=== PATIENT | male | born 1950 | race Caucasian/White ===

== ENCOUNTER 2018-02-10 05:44 | Day surgery (SDC) | payer MEDICARE ==
[2018-02-06 15:50] VITALS: BMI 29.2
[2018-02-10] MEDS ORDERED: NITROGLYCERIN SL TABS 0.4 MG TAB SUBLINGUAL PRN (05:47)
[2018-02-10] MEDS ORDERED: SODIUM CHLORIDE 0.9% 1,000 ML in EMPTY BAG 1 BAG IV ONE (05:47)
[2018-02-10] MEDS ORDERED: ASPIRIN 325 MG TAB PO STA (05:47)
[2018-02-10] MEDS ORDERED: ALPRAZolam 0.5 MG TAB PO PRN (05:47)
[2018-02-10] MEDS ORDERED: ATORVASTATIN 80 MG TAB PO STA (05:47)
[2018-02-10] MEDS ORDERED: ALPRAZolam 0.25 MG TAB PO PRN (05:47)
[2018-02-10 06:30] VITALS: TEMP 98.5
[2018-02-10 06:41] LABS: Basophils # (A) 0.1 k/uL (0-0.2); Basophils % (A) 1 %; Eosinophils # (A) 0.2 k/uL (0-0.7); Eosinophils % (A) 4 %; HCT 36.8 % (39.0-53.0); Lymphocytes # (A) 1.1 k/uL (1.0-4.8); Lymphocytes % (A) 25 %; MCH 29.9 pg (25.0-35.0); MCHC 32.6 g/dL (31.0-37.0); MCV 91.6 fL (80.0-100.0); Mean Platelet Volume 6.8; Monocytes # (A) 0.4 k/uL (0-1.0); Monocytes % (A) 9 %; Neutrophils # (A) 2.6 k/uL (1.3-7.7); Neutrophils % (A) 58 %; Platelet Count 275 k/uL (150-450); RBC 4.01 m/uL (4.30-5.90); RDW 14.6 % (11.5-15.5); WBC 4.5 k/uL (3.8-10.6)
[2018-02-10 06:43] LABS: Glucose,Whole Blood 99 mg/dL (75-99)
[2018-02-10 06:46] LABS: INR 1.2 (<1.2); Prothrombin Time 11.9 sec (9.0-12.0)
[2018-02-10] MEDS ORDERED: MIDAZOLAM 2 MG/2 ML VIAL ONE ×2 (06:48→09:00)
[2018-02-10] MEDS ORDERED: fentaNYL (PF) 50 MCG/ML 2 ML AMP ONE (06:48)
[2018-02-10] MEDS: BENZOCAINE SPRAY 1 CAN MUCOUS MEM ONE ×3 (06:52→07:10)
[2018-02-10] MEDS ORDERED: SODIUM CHLORIDE 0.9% 1,000 ML IV ONE (07:02)
[2018-02-10 07:03] LABS: Calcium 9.7 mg/dL (8.4-10.2); Potassium 3.8 mmol/L (3.5-5.1)
[2018-02-10] MEDS ORDERED: MIDAZOLAM 2 MG/2 ML VIAL IVP ONE (07:05)
[2018-02-10] MEDS: fentaNYL (PF) 50 MCG/ML 2 ML AMP IVP ONE ×2 (07:05→07:25)
[2018-02-10] MEDS ORDERED: LIDOCAINE 2% INJ 20 MG/ML (20 ML MDV) ONE (07:17)
[2018-02-10] MEDS ORDERED: HEPARIN SODIUM 1,000 UN/ML (10ML VL) ONE (07:17)
[2018-02-10] MEDS ORDERED: VERAPAMIL 2.5 MG/ML 2 ML AMP ONE ×2 (07:17→08:34)
--- NOTE | 2018-02-10 08:05 | ECHOT ---
TRANSESOPHAGEAL ECHOCARDIOGRAM INDICATION: Evaluation of mitral valve. PROCEDURE: After explaining the procedure to the patient as well as the risks and the complications. Blood pressure, heart rate, O2 saturation were monitored. The throat was sprayed with Cetacaine. He received 50 mcg intravenous fentanyl and 1 mg intravenous Versed. After obtaining moderate conscious sedated state, the probe was introduced in the esophagus without difficulty. Images were obtained. Following that, the probe was removed. There was no immediate complication. FINDINGS: Left atrial size is dilated. Left atrial appendage is normal. Left ventricular size and systolic function normal. The aortic valve revealed mild fibrocalcific change of the aortic cusp with preserved opening. The mitral valve appears to be normal. The tricuspid valve is normal. A wire was noted in the right ventricle. The descending thoracic aorta appears to be normal. No pericardial effusion was noted. Doppler, pulse wave and color Doppler obtained and revealed severe mitral regurgitation with mild to moderate aortic and mild tricuspid regurgitation. There was no shunting by color Doppler study. The estimated right ventricular systolic pressure was 37 mmHg. CONCLUSION: 1. Dilated left atrium and normal appearance of left atrial appendage. 2. Severe mitral regurgitation. 3. Normal left ventricular size and systolic function with ejection fraction estimated at 55%. 4. Mild to moderate aortic regurgitation with mild sclerosis of the valve. 5. Mild tricuspid regurgitation. 6. A wire was noted in the right ventricle and right atrium. 7. No evidence of shunting across the interatrial septum. 8. Normal appearance of the descending thoracic aorta. MMODL / IJN: [id number] /
[2018-02-10] MEDS ORDERED: LIDOCAINE 2% INJ 20 MG/ML SQ ONE (08:09)
[2018-02-10] MEDS ORDERED: VERAPAMIL SYRINGE (5 MG/10 ML) INTRAARTER ONE (08:12)
[2018-02-10] MEDS ORDERED: HEPARIN SODIUM 1,000 UN/ML (10ML VL) IV ONE (08:13)
[2018-02-10] MEDS: VERAPAMIL SYRINGE (5 MG/10 ML) INTRAARTER ONE ×2 (08:39→09:02)
[2018-02-10] MEDS ORDERED: MIDAZOLAM 2 MG/2 ML VIAL IV ONE (09:02)
[2018-02-10] MEDS ORDERED: IOHEXOL 350 MG/ML 125ML BOTTLE INJ ONE (09:15)
[2018-02-10] MEDS ORDERED: RX INFO: IV CONTRAST WAS GIVEN 1 EACH MISC MISCELLANE PRN (09:24)
[2018-02-10] MEDS ORDERED: TRIAMCINOLONE ACET 0.5% CREAM 15 GM TUBE TOPICAL PRN (09:25)
[2018-02-10] MEDS ORDERED: SODIUM CHLORIDE 0.9% 1,000 ML IV SCH (09:30)
--- NOTE | 2018-02-10 10:26 | CC ---
CARDIAC CATHETERIZATION REPORT Mr. Gutierrez is a 67-year-old male with known history of mitral regurgitation, who has been complaining of progressive symptoms of dyspnea. He was evaluated by Dr. Rockwell and recommendation regarding cardiac catheterization. The procedures, risks and complications were discussed with the patient who is in full understanding and agreement. PROCEDURE: Patient was brought to the [facility] after receiving fentanyl and Benadryl and achieving moderate conscious sedated state. Using Xylocaine anesthesia and Seldinger technique, a 6-Cymro sheath was introduced in the right radial artery. Attempt to cannulate the coronaries were unsuccessful because severe tortuosity at that time. Using Xylocaine anesthesia and Seldinger technique, a 6-Cymro sheath was introduced in left radial artery and a selective right coronary angiography was attempted with 5-Cymro 4 bend right Maria Alejandra which was unsuccessful. Subsequently, was cannulated using a 5-Cymro multipurpose B2. Following that, the catheters were removed. Attempt to advance a 5- Cymro 4 bend Maria Alejandra were unsuccessful. That catheter was removed and subsequently a 6-Cymro Mark and subsequently a 6-Cymro were used to obtain images of the left coronary system. After obtaining images of the coronary system, catheter and sheaths were removed. Hemostasis was obtained with deployment of a TR band on both radial artery. There was no immediate complication. Patient is returned to his room in stable condition. The aortic valve was crossed using the Mark catheter and pressures were calculated. Of note, the patient received 4500 units of intravenous heparin as well as intra-arterial verapamil. FINDIN. LEFT MAIN: This is a large size vessel bifurcating into left circumflex, anterior descending artery. Left main coronary artery has no evidence of high-grade stenosis. 2. LEFT ANTERIOR DESCENDING ARTERY: This is a large-sized vessel, reaching toward the apex with a wraparound apex segment giving rise to 2 diagonal branches. The left anterior descending artery as well as branches have no evidence of significant obstructive coronary artery disease. 3. LEFT CIRCUMFLEX: This is a nondominant vessel giving rise to a large obtuse marginal branch. The left circumflex as well as branches have no evidence of obstructive lung disease. 4. RIGHT CORONARY ARTERY: This is a large dominant vessel bifurcating distally into PDA, postoperative single branches. The right coronary artery has mild intimal disease in mid segment of 10% to 20%. The rest of the vessel has no high-grade stenosis. 5. LEFT VENTRICULOGRAM: Left ventriculogram was not performed. HEMODYNAMICS: There was no gradient across the aortic valve. The ventricular diastolic pressure was 12 mmHg. CONCLUSION: 1. Minimal coronary artery disease. 2. Normal left ventricle end-diastolic pressure. RECOMMENDATION: Patient will be evaluated regarding the need to undergo mitral valve surgery. Those findings and recommendation were discussed with the patient and his family who are in full understanding and agreement. Duration of procedure is 70 minutes. MMHALEYL / IJN: [id number] /
--- NOTE | 2018-02-10 10:29 | LTR ---
DATE OF SERVICE: 02/10/2018 RE: Neymar Gutierrez Dear Dr. Bridges; I had the pleasure to perform cardiac catheterization on Mr. Gutierrez at [facility] on February 10, 2018 and a full copy of the procedure note will be forwarded to you. In brief, he was found to have mild intimal disease but his transthoracic echocardiogram revealed severe mitral regurgitation. In view of that, I would recommend proceeding with evaluation for possible mitral valve repair. I will keep you updated on his progress and thank you again for allowing me to participate in this patient's care. Please feel free to call if any questions. Sincerely yours, Amita DURAN / MARY LOU: [id number] /
[2018-02-10 11:05] VITALS: PULSE 49
[2018-02-10 12:01] VITALS: BP 129/60; RESP 16
[2018-02-10] MEDS ORDERED: HYDROCHLOROTHIAZIDE PO SCH (15:00)
[2018-02-10] MEDS ORDERED: DIGOXIN 125 MCG TAB PO SCH (15:00)
[2018-02-10] MEDS ORDERED: LOSARTAN PO SCH (15:00)
[2018-02-10] MEDS ORDERED: ATORVASTATIN 40 MG TAB PO SCH (15:00)
[2018-02-10] MEDS ORDERED: NON-FORMULARY DRUG (Ubidecarenone [Co Q-10] 200 MG) PO SCH (15:00)
[2018-02-10] MEDS ORDERED: NON-FORMULARY DRUG (Gabapentin [Neurontin] 600 MG) PO SCH (16:00)
[2018-02-10] MEDS ORDERED: WARFARIN 5 MG TAB PO SCH (21:00)
[2018-02-10] MEDS ORDERED: [UNRECOGNIZED DRUG - OTHER] PO SCH (21:00)
[2018-02-10] MEDS ORDERED: FLECAINIDE ACETATE 100 MG PO SCH (21:00)
[2018-02-10] MEDS ORDERED: CALCIUM CARBONATE PO SCH (21:00)
[2018-02-10] MEDS ORDERED: CARVEDILOL 3.125 MG TAB PO SCH (21:00)
[2018-02-10] MEDS ORDERED: VITAMIN D3 PO SCH (21:00)
== END 2018-02-10 14:30 | disposition home or self-care (01) ==
LOC: CATHCVL 05:44
PROVIDERS: ATTEND Internal Medicine Interventional Cardiology
DX: I08.3 Combined rheumatic disorders of mitral, aortic and tricuspid valves (principal); I77.1 Stricture of artery; I25.10 Atherosclerotic heart disease of native coronary artery without angina pectoris; I10 Essential (primary) hypertension; Z87.891 Personal history of nicotine dependence; Z95.0 Presence of cardiac pacemaker; I48.91 Unspecified atrial fibrillation; E11.9 Type 2 diabetes mellitus without complications; G47.33 Obstructive sleep apnea (adult) (pediatric); Z99.89 Dependence on other enabling machines and devices; E78.5 Hyperlipidemia, unspecified; Z95.828 Presence of other vascular implants and grafts; Z79.01 Long term (current) use of anticoagulants; Z79.84 Long term (current) use of oral hypoglycemic drugs; Z79.82 Long term (current) use of aspirin; Z79.899 Other long term (current) drug therapy
CPT/HCPCS: 93312; 93320; 93325; 93458; 80048; 85025; 85610; C1894; C1769 ×2; J2001; J2250; J3010; J1644; Q9967

== ENCOUNTER → 2018-04-28 | Outpatient (CLI) | payer MEDICARE ==
[2018-04-28 15:13] LABS: Anisocytosis Slight; Appearance,Urine Clear (Clear); Bilirubin,Urine Negative (Negative); Blood,Urine Negative (Negative); Color,Urine Light Yellow; Glucose,Urine (UA) Negative (Negative); HCT 38.8 % (39.0-53.0); HGB 12.6 gm/dL (13.0-17.5); Hypochromasia Slight; Ketones,Urine Negative (Negative); Leukocyte Esterase,Urine Negative (Negative); MCH 30.3 pg (25.0-35.0); MCHC 32.3 g/dL (31.0-37.0); MCV 93.8 fL (80.0-100.0); Mean Platelet Volume 6.8; Nitrite,Urine Negative (Negative); PH, Urine 6.5 (5.0-8.0); Platelet Count 269 k/uL (150-450); Protein,Urine Negative (Negative); RBC 4.14 m/uL (4.30-5.90); RDW 16.3 % (11.5-15.5); Specific Gravity,Urine 1.006 (1.001-1.035); Urobilinogen,Urine <2.0 mg/dL (<2.0); WBC 3.3 k/uL (3.8-10.6)
[2018-04-28 15:19] LABS: Prothrombin Time 17.7 sec (9.0-12.0)
[2018-04-28 15:26] LABS: Albumin 4.9 g/dL (3.5-5.0); Calcium 10.1 mg/dL (8.4-10.2); Potassium 4.2 mmol/L (3.5-5.1); Total Bilirubin 0.7 mg/dL (0.2-1.3); Total Protein 7.4 g/dL (6.3-8.2)
== END | disposition home or self-care (01) ==
LOC: LABWHC1 14:26
PROVIDERS: ATTEND Thoracic Surgery (Cardiothoracic Vascular Surgery)
DX: I34.1 Nonrheumatic mitral (valve) prolapse (principal)
CPT/HCPCS: 36415; 80053; 81003; 85027; 85610

== ENCOUNTER → 2018-04-28 | Outpatient (CLI) | payer MEDICARE | END | disposition home or self-care (01) | LOC: CPPFTMAIN 13:32 | PROVIDERS: ATTEND Thoracic Surgery (Cardiothoracic Vascular Surgery) | DX: J44.9 Chronic obstructive pulmonary disease, unspecified (principal) | CPT/HCPCS: 36415; 80053; 81003; 85027; 85610; 94060; 94726; 94729 ==

== ENCOUNTER 2019-05-01 08:31 | Day surgery (SDC) | payer MEDICARE ==
[2019-04-27 11:43] VITALS: BMI 30.7
[~2019-05-01 08:31] MED LIST: ceFAZolin 1,000 MG in SODIUM CHLORIDE 0.9% IRRIGATIO 250 ML IRRIGATION ONE; ceFAZolin IN SWFI 2 GM/20 ML SYRINGE IVP ONE
[2019-05-01 09:35] LABS: Basophils % (A) 1 %; Eosinophils # (A) 0.2 k/uL (0-0.7); Eosinophils % (A) 3 %; HCT 37.7 % (39.0-53.0); HGB 12.1 gm/dL (13.0-17.5); Lymphocytes # (A) 0.6 k/uL (1.0-4.8); Lymphocytes % (A) 14 %; MCH 32.4 pg (25.0-35.0); MCV 101.2 fL (80.0-100.0); Macrocytosis Slight; Mean Platelet Volume 6.5; Monocytes # (A) 0.3 k/uL (0-1.0); Monocytes % (A) 7 %; Neutrophils # (A) 3.2 k/uL (1.3-7.7); Neutrophils % (A) 72 %; Platelet Count 288 k/uL (150-450); RBC 3.72 m/uL (4.30-5.90); WBC 4.4 k/uL (3.8-10.6)
[2019-05-01 09:38] LABS: Calcium 9.6 mg/dL (8.4-10.2); Potassium 3.8 mmol/L (3.5-5.1)
[2019-05-01 09:40] LABS: INR 2.1 (<1.2); Prothrombin Time 20.4 sec (9.0-12.0)
[2019-05-01] MEDS ORDERED: PROPOFOL 10 MG/ML 20 ML VIAL IV ONE (09:51)
[2019-05-01] MEDS ORDERED: fentaNYL (PF) 50 MCG/ML 2 ML AMP ONE (09:51)
[2019-05-01] MEDS ORDERED: MIDAZOLAM 2 MG/2 ML VIAL ONE (09:51)
[2019-05-01] MEDS ORDERED: SODIUM CHLORIDE 0.9% 250 ML IV ONE (09:55)
[2019-05-01] MEDS ORDERED: IOPAMIDOL-250 50ML BTL IV ONE (10:06)
[2019-05-01] MEDS: SODIUM CHLORIDE 0.9% 1,000 ML IV SCH (10:13)
[2019-05-01] MEDS ORDERED: LIDOCAINE 1% INJ 10MG/ML (20 ML MDV) ONE ×2 (10:20)
[2019-05-01] MEDS ORDERED: LIDOCAINE 1% INJ 10MG/ML (20 ML MDV) SQ ONE ×2 (10:27→10:40)
[2019-05-01 12:27] LABS: Glucose,Whole Blood 75 mg/dL (75-99)
[2019-05-01] MEDS ORDERED: ACETAMINOPHEN TAB 325 MG TAB PO PRN (12:37)
[2019-05-01] MEDS ORDERED: ACETAMINOPHEN IV (For NPO) 1,000 MG in EMPTY BAG 1 BAG IVPB ONE (15:30)
[2019-05-01] MEDS: GABAPENTIN 300 MG CAP PO SCH ×2 (16:34→21:46)
[2019-05-01] MEDS: ceFAZolin IN SWFI 2 GM/20 ML SYRINGE IVP SCH ×2 (16:34→21:47)
[2019-05-01 16:40] LABS: Glucose,Whole Blood 121 mg/dL (75-99)
[2019-05-01] MEDS: HYDROcodone/APAP 5-325MG 1 EACH TAB PO PRN (20:19)
[2019-05-01] MEDS ORDERED: BACLOFEN 10 MG TAB PO SCH (21:00)
[2019-05-01] MEDS ORDERED: ATORVASTATIN 20 MG TAB PO SCH (21:00)
[2019-05-01 21:04] LABS: Glucose,Whole Blood 137 mg/dL (75-99)
[2019-05-02] MEDS: ceFAZolin IN SWFI 2 GM/20 ML SYRINGE IVP SCH ×2 (04:55→11:40)
[2019-05-02 06:53] LABS: Glucose,Whole Blood 99 mg/dL (75-99)
--- NOTE | 2019-05-02 07:47 | CE ---
CARDIAC ELECTROPHYSIOLOGY REPORT Neymar Gutierrez is a 68-year-old male patient who has symptoms of heart failure, tiredness and fatigue. He is 100% paced in the right ventricle from his dual-chamber pacemaker. These symptoms have persisted despite cardioversion to sinus rhythm and maintenance of sinus rhythm/atrially paced rhythm. His ejection fraction was 45% to 50%. He is brought in for an upgrade to a biventricular system for heart failure management in view of the high RV pacing percentage. Patient was brought to the EP lab in a fasting state. Written informed consent was obtained prior to the procedure. The left shoulder area was prepped and draped as per protocol and 1% lidocaine was used for local anesthesia. A 4 cm incision was made parallel to the deltopectoral groove and carried down to the level of the generator. The generator was explanted. The leads were freed from the surrounding tissue. Partial capsulectomy was performed. Hemostasis was assured using the system. Left axillary vein access was obtained and a wire was placed in the right side of the heart. Venous sheath was placed in the subclavian vein. Via this sheath was placed to position the His bundle lead for physiologic septal pacing. Since the patient had intermittent complete heart block, pace mapping was performed. The lead was positioned in the His bundle area and pace mapping was performed. This resulted in a narrow QRS, nonselective type of his bundle paced beat. The lead was screwed in position and selective pacing was obtained with excellent capture thresholds of 1.8 V at 1 millisecond. The sheath was removed. The lead was secured to the underlying pectoralis fascia. The old generator was explanted (dual-chamber pacemaker). The new biventricular pacemaker generator was implanted. The leads were connected. The chronic atrial lead was a 45 cm, model #5076, serial number [id number]. The cardiac RV lead which was coiled in the RV was a model #5076, 58 cm in length and serial number [id number]. This has been screwed in the RV septum. The third lead that was plugged into the LV port was a Medtronic model #3830, 69 cm length and serial number [id number]. R-waves 2.6 mV, pacing impedance 532 ohms, loss of selective capture at 1.7 V at 1 millisecond. The leads were connected to the generator. This was a Medtronic Sultana CLIMATOLOGY PROFESSOR P. The wound was closed in 3 layers and dressed per protocol. RESULTS: Successful upgrade to a biventricular system with placement of Medtronic 3830 lead for physiologic septal pacing for underlying intermittent complete heart block with bradycardia with 100% RV pacing with symptoms of heart failure despite maintenance of sinus rhythm. Procedure went well without any acute complications. PLAN: Hold Coumadin tonight, but resume tomorrow and continue current cardiac medications and IV antibiotics. MMODL / IJN: [id number] /
[2019-05-02 08:20] VITALS: RESP 16; TEMP 98.1
--- NOTE | 2019-05-02 08:31 | XR ---
EXAMINATION TYPE: XR chest 2V DATE OF EXAM: 05/02/2019 COMPARISON: Prior chest x-ray 03/19/2011 HISTORY: Lead placement check TECHNIQUE: Frontal and lateral views of the chest are obtained. FINDINGS: Patient is post median sternotomy. There is been placement of a generator in the left pect oral region, interval exchange, new lead has been placed within the region between the right atrial a nd right ventricular lead on previous exam and is directed posteriorly. Interval valve replacement mcdonald rgery has been performed. Stent graft is present within the abdomen. Prominent lung lines suggest SYSTEM SUPPORT DEVELOPER D. Blunting of the splenic angles could be due to small effusions or hyperinflation. Access is stable . No pneumothorax. IMPRESSION: Interval lead placement as described.
[2019-05-02] MEDS: SODIUM CHLORIDE 0.9% 1,000 ML IV SCH (08:33)
[2019-05-02] MEDS: HYDROcodone/APAP 5-325MG 1 EACH TAB PO PRN (08:33)
[2019-05-02] MEDS: GABAPENTIN 300 MG CAP PO SCH (08:33)
[2019-05-02] MEDS ORDERED: FUROSEMIDE 20 MG TAB PO SCH (09:00)
[2019-05-02] MEDS ORDERED: ASPIRIN 81 MG PO SCH (09:00)
[2019-05-02] MEDS ORDERED: VALSARTAN 40 MG TAB PO SCH (09:00)
--- NOTE | 2019-05-02 11:08 | P.DS ---
Providers Attending physician: Frank Rockwell Primary care physician: [facility] Course: Patient is doing well. No chest discomfort other than soreness at the site no dizziness lightheadedness palpitations resting comfortably in bed Blood pressure 126/75 milligrams his mercury respirations normal pulse rate in the 60s afebrile at 98.1F Breath sounds are clear no rhonchi no crackles Normal heart sounds no murmurs or gallops no rub Abdomen soft nontender Next and is warm no edema Impression Upgrade to a biventricular pacemaker for management of heart failure symptoms despite maintenance of sinus rhythm and mild LV dysfunction 45-50% with underlying 100% RV pacing previously Successful physiologic septal pacing with selective His bundle pacing was noted Plan Discharge home after completion of IV antibiotics and chest x-ray and device interrogation Follow-up with the device clinic in 5 days and follow with Dr. Gregg in 3-4 months Continue current cardiac medications Plan - Discharge Summary Discharge Rx Participant: No New Discharge Prescriptions: Continue Gabapentin [Neurontin] 600 mg PO TID metFORMIN HCL 1,000 mg PO BID Warfarin [Coumadin] 7.5 mg PO TUFR Atorvastatin [Lipitor] 20 mg PO HS Citalopram Hydrobromide [Citalopram HBr] 20 mg PO DAILY Baclofen [Lioresal] 10 mg PO HS Valsartan [Diovan] 40 mg PO DAILY Furosemide [Lasix] 20 mg PO DAILY Folic Acid 1 mg PO DAILY Ferrous Sulfate [Iron (65 MG Elemental)] 325 mg PO BID Warfarin [Coumadin] 5 mg PO SUMOWETHSA Aspirin 81 mg PO DAILY Gelsyn3 1 injection IM Q7D Discharge Medication List Gabapentin [Neurontin] 600 mg PO TID 02/19/16 [History] metFORMIN HCL 1,000 mg PO BID 02/19/16 [History] Atorvastatin [Lipitor] 20 mg PO HS 09/13/17 [History] Warfarin [Coumadin] 7.5 mg PO TUFR 09/13/17 [History] Aspirin 81 mg PO DAILY 04/27/19 [History] Baclofen [Lioresal] 10 mg PO HS 04/27/19 [History] Citalopram Hydrobromide [Citalopram HBr] 20 mg PO DAILY 04/27/19 [History] Ferrous Sulfate [Iron (65 MG Elemental)] 325 mg PO BID 04/27/19 [History] Folic Acid 1 mg PO DAILY 04/27/19 [History] Furosemide [Lasix] 20 mg PO DAILY 04/27/19 [History] Gelsyn3 1 injection IM Q7D 04/27/19 [History] Valsartan [Diovan] 40 mg PO DAILY 04/27/19 [History] Warfarin [Coumadin] 5 mg PO SUMOWETHSA 04/27/19 [History] Follow up Appointment(s)/Referral(s): Frank Rockwell MD [STAFF PHYSICIAN] - 1 Week (Device clinic follow-up in [address] Gregg in 3-4 months) Activity/Diet/Wound Care/Special Instructions: PATIENT EDUCATION MATERIAL Instructions following a heart rhythm device implant. 1. Keep dressing DRY for 5 DAYS. You may cover the area with Saran or Cling Wrap, prior to a shower. 2. The dressing will be removed in the Device Clinic at [facility]. Absorbable sutures were used to close the wound. 3. Avoid raising the left arm above the shoulder level. 4 week restriction 4. Avoid arm movements, like backscratching, rubbing the head, or pulling on a cord. 4 weeks restriction 5. Gentle range of motion movements of the shoulder, closest to the incision should be performed to avoid a frozen shoulder. (Pendulum exercises of the shoulder) 6. The opposite arm may be used freely. 7. Avoid driving for 7 days. 8. Avoid activities such as golfing, swimming, weed whacking, lifting more than 10 pounds weight, bowling, gymnastics and weight training/lifting. (6 weeks restriction) 9. Activities such as wood chopping with an axe, pull-ups in the gymnasium, power lifting, arc-welding, being close to home induction cooktops will always be a problem. 10. Arm sling is only a reminder not to raise the arm above the head. You do not need to keep the arm completely immobilized. Your free to move the arm and use it and for normal activities. In case of any problems, please call [facility], Sheri Yip, @ [phone], Attention: Device Clinic Device clinic follow-up in 5 days Follow-up with primary security developer/Dr. Gregg in 3 months No changes in medications
[2019-05-02 11:31] LABS: Glucose,Whole Blood 91 mg/dL (75-99)
[2019-05-02 12:40] VITALS: BP 115/73; PULSE 59
[2019-05-03] MEDS ORDERED: metFORMIN 500 MG TAB PO SCH (21:00)
== END 2019-05-02 13:05 | disposition home or self-care (01) ==
LOC: CATHEP 08:31 → 1SOBS 11:41 → CATHEP 05-02 13:05
PROVIDERS: ATTEND Internal Medicine Clinical Cardiac Electrophysiology
DX: I44.2 Atrioventricular block, complete (principal); Z45.010 Encounter for checking and testing of cardiac pacemaker pulse generator [battery]; I48.1 Persistent atrial fibrillation; E78.5 Hyperlipidemia, unspecified; I10 Essential (primary) hypertension; Z72.0 Tobacco use; I65.23 Occlusion and stenosis of bilateral carotid arteries; Z82.49 Family history of ischemic heart disease and other diseases of the circulatory system; I71.9 Aortic aneurysm of unspecified site, without rupture; E11.9 Type 2 diabetes mellitus without complications; G47.33 Obstructive sleep apnea (adult) (pediatric); Z99.89 Dependence on other enabling machines and devices; J44.9 Chronic obstructive pulmonary disease, unspecified; Z95.1 Presence of aortocoronary bypass graft; Z79.01 Long term (current) use of anticoagulants; Z79.84 Long term (current) use of oral hypoglycemic drugs; Z79.02 Long term (current) use of antithrombotics/antiplatelets; Z79.82 Long term (current) use of aspirin; Z79.899 Other long term (current) drug therapy
CPT/HCPCS: 33225; 33229; 80048; 85025; 85610; 71046; C1769 ×2; C1892; C1898; C2621; J2250; J0690 ×3; J2001; J3010; J2704; Q9966; 33214

== ENCOUNTER 2019-05-10 12:09 | Day surgery (SDC) | payer MEDICARE ==
--- NOTE | 2019-05-10 12:35 | P.PCN ---
Preoperative Diagnosis: Mr. Gutierrez called in saying that his wound was oozing. Dark blood was coming out He is brought to the EP lab area and the wound was inspected after cleaning it with chlorhexidine. There were 2 tiny areas with dark red blood was oozing out Under sterile Precautions, 2 silk sutures were placed one on the medial end of the incision and the second one in the middle of the incision. Thereafter application of pressure did not result in any further ohms The wound was then dressed per protocol Diagnosis Minimal wound dehiscence in the superficial layers Small hematoma in ablation the pacemaker site, patient on anticoagulation Procedure performed Wound suturing
== END 2019-05-10 12:42 | disposition home or self-care (01) ==
LOC: CATHEP 12:09
PROVIDERS: ATTEND Internal Medicine Clinical Cardiac Electrophysiology
DX: T81.31XA Disruption of external operation (surgical) wound, not elsewhere classified, initial encounter (principal)

== ENCOUNTER → 2022-03-30 | Outpatient (CLI) | payer MEDICARE ==
--- NOTE | 2022-03-30 11:37 | US ---
EXAMINATION TYPE: US venous doppler duplex LE LT DATE OF EXAM: 03/30/2022 11:05 AM COMPARISON: NONE CLINICAL HISTORY: R22.42 LOCALIZED SWELLING W/LUMP. injury 1 week ago to brar, no h/o dvt, on thinner s . Pain after injury. SIDE PERFORMED: Left TECHNIQUE: The lower extremity deep venous system is examined utilizing real time linear array sonog alexis with graded compression, doppler sonography and color-flow sonography. VESSELS IMAGED: Common Femoral Vein Deep Femoral Vein Greater Saphenous Vein * Femoral Vein Popliteal Vein Small Saphenous Vein * Proximal Calf Veins (* superficial vessels) Left Leg: Negative for DVT Grayscale, color doppler, spectral doppler imaging performed of the deep veins of the left lower extr emity. There is normal flow, compressibility, vascular waveforms. IMPRESSION: No ultrasound evidence for acute DVT in the left lower extremity.
== END | disposition home or self-care (01) ==
LOC: RADUSWWP 10:48
PROVIDERS: ATTEND Internal Medicine Geriatric Medicine
DX: R22.42 Localized swelling, mass and lump, left lower limb (principal)

== ENCOUNTER → 2023-06-14 | Outpatient (CLI) | payer MEDICARE ==
--- NOTE | 2023-06-15 08:24 | XR ---
EXAMINATION TYPE: XR lumbar spine 2 or 3V DATE OF EXAM: 06/14/2023 4:40 PM INDICATION: Patient age:Male; 72 years old; Reason for study: M48.00; COMPARISON: None TECHNIQUE: Frontal, lateral and coned in L5-S1 lateral views of the spine. FINDINGS: Bridging syndesmophytes are seen throughout the lumbar spine. There is extensive graft friedman ges. Multilevel facet joint arthropathy is present. Alignment is within normal limits. Spinous proces ses are in close approximation osteoarthrosis. IMPRESSION: 1. No acute fracture. 2. Moderate multilevel disc degeneration with findings suggestive of diffuse hepatic skeletal hyperos tosis. 3. Findings suggestive of Baastrup's disease.
== END | disposition home or self-care (01) ==
LOC: RADXRMAIN 16:13
PROVIDERS: ATTEND Internal Medicine Geriatric Medicine
DX: M51.36 Other intervertebral disc degeneration, lumbar region (principal); M48.061 Spinal stenosis, lumbar region without neurogenic claudication
CPT/HCPCS: 72100

== ENCOUNTER 2023-06-27 06:36 | Emergency (ER) | payer MEDICARE ==
[2023-06-27 06:39] VITALS: RESP 18; TEMP 98.7
--- NOTE | 2023-06-27 06:57 | ED ---
General Adult HPI - General Source: patient, RN notes reviewed, old records reviewed Mode of arrival: ambulatory Limitations: no limitations <Zeke Hanna - Last Filed: 06/27/23 06:58> <Gilberto Cottrell - Last Filed: 06/27/23 10:19> - General Chief complaint: Fall Stated complaint: Left Eye Injury - History of Present Illness Initial comments: Patient is a 72-year-old male with past history remarkable for atrial fibrillation, diabetes, hypertension who is on Coumadin presents to the emergency department after rolling out of bed at home and striking his head on the dresser. Bed is approximately 3 feet off the ground. As he rolled, he was sleeping Only rolled out of bed. He awoke when his head struck the dresser and he shouted. When he hit the ground he did not lose consciousness. Fall occurred at approximately 4:30 this morning. He iced his injury, which was a swelling and bruising over his left eye which is improved but he decided to come get evaluated at this time. Denies any lightheadedness, blurry vision. Denies any chest pain, shortness of breath, abdominal pain, nausea, vomiting. Denies any weakness or numbness. He ambulates with a walker at baseline. Presents for further evaluation at this time. His is at bedside and aids with his history. (Zeke Hanna) - Related Data Home Medications Medication Instructions Recorded Confirmed Gabapentin [Neurontin] 600 mg PO TID 02/19/16 04/27/19 metFORMIN HCL [Glucophage] 1,000 mg PO BID 02/19/16 04/27/19 Atorvastatin [Lipitor] 20 mg PO HS 09/13/17 04/27/19 Warfarin [Coumadin] 7.5 mg PO TUFR 09/13/17 05/01/19 Aspirin 81 mg PO DAILY 04/27/19 04/27/19 Baclofen [Lioresal] 10 mg PO HS 04/27/19 04/27/19 Citalopram Hydrobromide 20 mg PO DAILY 04/27/19 04/27/19 [Citalopram HBr] Ferrous Sulfate [Iron (65 MG 325 mg PO BID 04/27/19 04/27/19 Elemental)] Folic Acid 1 mg PO DAILY 04/27/19 04/27/19 Furosemide [Lasix] 20 mg PO DAILY 04/27/19 04/27/19 Gelsyn3 1 injection IM Q7D 04/27/19 Valsartan [Diovan] 40 mg PO DAILY 04/27/19 04/27/19 Warfarin [Coumadin] 5 mg PO SUMOWETHSA 04/27/19 05/01/19 Allergies Allergy/AdvReac Type Severity Reaction Status Date / Time No Known Allergies Allergy Verified 04/27/19 11:27 Review of Systems ROS Other: All systems not noted in ROS Statement are negative. <Zeke Hanna - Last Filed: 06/27/23 06:58> ROS Other: All systems not noted in ROS Statement are negative. <Gilberto Cottrell - Last Filed: 06/27/23 10:19> ROS Statement: Those systems with pertinent positive or pertinent negative responses have been documented in the HPI. Review of Systems: CONST: Denies fever EYES: Endorses swollen left eye lid. ENT: Denies nasal congestion C/V: Denies Chest pain RESP: Denies shortness of breath GI: Denies abdominal pain : Denies dysuria SKIN: Endorses contusion to left eyelid. MSK: Denies joint pain. NEURO: Denies headache (Zeke Hanna) Past Medical History Past Medical History: Atrial Fibrillation, Diabetes Mellitus, Hyperlipidemia, Hypertension, Osteoarthritis (OA), Sleep Apnea/CPAP/BIPAP Additional Past Medical History / Comment(s): See Dr Rockwell's H&P, aortic aneurysm, C PAP MACHINE History of Any Multi-Drug Resistant Organisms: None Reported Past Surgical History: Coronary Bypass/CABG, Heart Catheterization, Joint Replacement, Orthopedic Surgery, Pacemaker Additional Past Surgical History / Comment(s): ORIF left ankle, left cataract, egd,Mitral Valve Repair [facility],Abdominal Aortic Aneurysm repair,lt total hip 03-15-19 Past Anesthesia/Blood Transfusion Reactions: No Reported Reaction Type of Cardiac Device: Permanent Pacemaker Device Placement Date:: 03/18/2011 Past Psychological History: No Psychological Hx Reported Past Alcohol Use History: Rare Past Drug Use History: None Reported - Past Family History Father Family Medical History: Cancer Mother Family Medical History: Deep Vein Thrombosis (DVT) <Zeke Hanna - Last Filed: 06/27/23 06:58> General Exam Limitations: no limitations <Zeke Hanna - Last Filed: 06/27/23 06:58> - General Exam Comments Initial Comments: General: Appears in no acute distress. HEAD: Patient has a left eyelid contusion and hematoma present. Per patient's and patient, hematoma is improved in size after icing at home. EYES: Left eyelid is swollen shut however I am able to open it to evaluate his left eye. There is no proptosis. PERRLA, EOMI, conjunctiva normal, no discharge. Pupils appear to be 2-3 mm and equal bilaterally. Acuity appears to be intact. ENT: Hearing grossly intact, normal oropharynx. RESPIRATORY: Clear breath sounds bilaterally. No wheezes, rales, or rhonchi. C/V: Regular rate and rhythm. S1 and S2 auscultated, no edema, peripheral pulses 2+ and intact throughout ABD: Abd is soft, nontender, nondistended EXT: Normal range of motion, no obvious deformity.No midline cervical, thoracic, lumbar spine tenderness to palpation. Pelvis stable. Patient ambulated and dr martines himself to the ER. SKIN: Contusion and hematoma to left eyelid. NEURO: Alert and oriented x 4. Cranial nerves II-XII intact. No focal sensory or strength deficits. GCS of 15. NIH of 0. (Zeke Hanna) Course <Gilberto Cottrell - Last Filed: 06/27/23 10:19> Vital Signs 06/27/23 06/27/23 06:36 08:19 Temperature 98.7 F Pulse Rate 91 92 Respiratory 18 18 Rate Blood Pressure 177/81 138/69 O2 Sat by Pulse 99 96 Oximetry - Reevaluation(s) Reevaluation #1: 06/27/23 10:[address] Arthur who is on-call for ophthalmology. It was dis cussed that patient has significant hematoma over the left upper eyelid. Though he does not have a retrobulbar hematoma or any vision or eye threatening issue he does have significant hematoma which is making it unable for patient to open his left eye. Given the location of hematoma patient may benefit from hematoma evacuation. Dr. Arthur reports that he does not perform this procedure and that we should recheck to ENT or physician that specializes in plastics. (Gilberto Cottrell) Reevaluation #2: 08/07/23 10:[address] Tejeda who is willing to follow up with patient in the office. He states that we should placed a pressure dressing over the hematoma. (Gilberto Cottrell) Medical Decision Making - EKG Data -: EKG Interpreted by Me <Zeke Hanna - Last Filed: 06/27/23 06:58> - Lab Data Result diagrams: 06/27/23 07:03 06/27/23 07:03 <Gilberto Cottrell - Last Filed: 06/27/23 10:19> - Medical Decision Making Was pt. sent in by a medical professional or institution (, RG, MINING CAPTAIN, urgent care, hospital, or longterm...) When possible be specific @ -No Did you speak to anyone other than the patient for history (EMS, parent, family, police, friend...)? What history was obtained from this source @ -No Did you review nursing and triage notes (agree or disagree)? Why? @ -I reviewed and agree with nursing and triage notes Were old charts reviewed (outside hosp., previous admission, EMS record, old EKG, old radiological studies, urgent care reports/EKG's, longterm records)? Report findings @ -No old charts were reviewed Differential Diagnosis (chest pain, altered mental status, abdominal pain women, abdominal pain men, vaginal bleeding, weakness, fever, dyspnea, syncope, headache, dizziness, GI bleed, back pain, seizure, CVA, palpatations, mental health, musculoskeletal)? @ -Intracranial injury, eyelid hematoma, skull fracture, facial fracture, this list is not all inclusive. EKG interpreted by me (3pts min.). @ -As above X-rays interpreted by me (1pt min.). @ -Pending CT interpreted by me (1pt min.). @ -Pending U/S interpreted by me (1pt. min.). @ -None done What testing was considered but not performed or refused? (CT, X-rays, U/S, labs)? Why? @ -None What meds were considered but not given or refused? Why? @ -None Did you discuss the management of the patient with other professionals (professionals i.e. , RG, MINING CAPTAIN, lab, RT, psych nurse, psych social worker, arc cutter plasma arc, teacher, consumer loan officer, community case manager)? Give summary @ -No Was smoking cessation discussed for >3mins.? @ -No Was critical care preformed (if so, how long)? @ -No Were there social determinants of health that impacted care today? How? (Homelessness, low income, unemployed, alcoholism, drug addiction, transportation, low edu. Level, literacy, decrease access to med. care, skilled nursing, rehab)? @ -No Was there de-escalation of care discussed even if they declined (Discuss DNR or withdrawal of care, Hospice)? DNR status @ -No What co-morbidities impacted this encounter? (DM, HTN, Smoking, COPD, CAD, Ca ncer, CVA, ARF, Chemo, Hep., AIDS, mental health diagnosis, sleep apnea, morbid obesity)? @ -Atrial fibrillation on blood thinners. Patient is on Coumadin Was patient admitted / discharged? Hospital course, mention meds given and route, prescriptions, significant lab abnormalities, going to OR and other pertinent info. @ -Based on the patient's presentation and physical exam, he presents after a fall by rolling out of bed. Has an obvious hematoma over his left eyelid. Does not appear to have eye damage. Swelling is improved per patient, however patient is on blood thinners. Therefore we will obtain CT brain, C-spine, facial bones. Patient does not meet trauma activation. However ATLS protocol was followed. Patient was in agreement this plan. Vital signs within acceptable limits. Workup is pending labs and imaging. Patient signed out to Dr. Cottrell for further management. (Zeke Hanna) - Lab Data Lab Results 06/27/23 06/27/23 06/27/23 Range/Units 06:50 06:55 07:03 WBC 3.5 L (3.8-10.6) k/uL RBC 3.89 L (4.30-5.90) m/uL Hgb 13.2 (13.0-17.5) gm/dL Hct 40.0 (39.0-53.0) % MCV 102.8 H (80.0-100.0) fL MCH 33.9 (25.0-35.0) pg MCHC 33.0 (31.0-37.0) g/dL RDW 13.5 (11.5-15.5) % Plt Count 203 (150-450) k/uL MPV 7.6 Neutrophils % 63 % Lymphocytes % 21 % Monocytes % 8 % Eosinophils % 5 % Basophils % 1 % Neutrophils # 2.2 (1.3-7.7) k/uL Lymphocytes # 0.8 L (1.0-4.8) k/uL Monocytes # 0.3 (0-1.0) k/uL Eosinophils # 0.2 (0-0.7) k/uL Basophils # 0.0 (0-0.2) k/uL Macrocytosis Slight PT (9.0-12.0) sec INR (<1.2) APTT (22.0-30.0) sec Sodium (137-145) mmol/L Potassium (3.5-5.1) mmol/L Chloride (98-107) mmol/L Carbon Dioxide (22-30) mmol/L Anion Gap mmol/L BUN (9-20) mg/dL Creatinine (0.66-1.25) mg/dL Est GFR (CKD-EPI)AfAm (>60 ml/min/1.73 sqM) Est GFR (CKD-EPI)NonAf (>60 ml/min/1.73 sqM) Glucose (74-99) mg/dL Calcium (8.4-10.2) mg/dL Total Bilirubin (0.2-1.3) mg/dL AST (17-59) U/L ALT (4-49) U/L Alkaline Phosphatase (38-126) U/L Total Protein (6.3-8.2) g/dL Albumin (3.5-5.0) g/dL Urine Opiates Screen (NotDetected) Ur Oxycodone Screen (NotDetected) Urine Methadone Screen (NotDetected) Ur Propoxyphene Screen (NotDetected) Ur Barbiturates Screen (NotDetected) U Tricyclic Antidepress (NotDetected) Ur Phencyclidine Scrn (NotDetected) Ur Amphetamines Screen (NotDetected) U Methamphetamines Scrn (NotDetected) U Benzodiazepines Scrn (NotDetected) Urine Cocaine Screen (NotDetected) U Marijuana (THC) Screen (NotDetected) Serum Alcohol mg/dL Blood Type A Positive Blood Type Confirm A Positive Blood Type Recheck No Previous Record Bld Type Recheck Status CABO Indicated Antibody Screen NEGATIVE Spec Expiration Date 06/30/2023 - 234906/27/23 06/27/23 06/27/23 Range/Units 07:03 07:03 08:28 WBC (3.8-10.6) k/uL RBC (4.30-5.90) m/uL Hgb (13.0-17.5) gm/dL Hct (39.0-53.0) % MCV (80.0-100.0) fL MCH (25.0-35.0) pg MCHC (31.0-37.0) g/dL RDW (11.5-15.5) % Plt Count (150-450) k/uL MPV Neutrophils % % Lymphocytes % % Monocytes % % Eosinophils % % Basophils % % Neutrophils # (1.3-7.7) k/uL Lymphocytes # (1.0-4.8) k/uL Monocytes # (0-1.0) k/uL Eosinophils # (0-0.7) k/uL Basophils # (0-0.2) k/uL Macrocytosis PT 24.4 H (9.0-12.0) sec INR 2.5 H (<1.2) APTT 33.8 H (22.0-30.0) sec Sodium 140 (137-145) mmol/L Potassium 4.0 (3.5-5.1) mmol/L Chloride 104 (98-107) mmol/L Carbon Dioxide 24 (22-30) mmol/L Anion Gap 12 mmol/L BUN 22 H (9-20) mg/dL Creatinine 1.40 H (0.66-1.25) mg/dL Est GFR (CKD-EPI)AfAm 59 (>60 ml/min/1.73 sqM) Est GFR (CKD-EPI)NonAf 51 (>60 ml/min/1.73 sqM) Glucose 157 H (74-99) mg/dL Calcium 9.3 (8.4-10.2) mg/dL Total Bilirubin 0.5 (0.2-1.3) mg/dL AST 24 (17-59) U/L ALT 21 (4-49) U/L Alkaline Phosphatase 90 (38-126) U/L Total Protein 7.1 (6.3-8.2) g/dL Albumin 4.4 (3.5-5.0) g/dL Urine Opiates Screen Not Detected (NotDetected) Ur Oxycodone Screen Not Detected (NotDetected) Urine Methadone Screen Not Detected (NotDetected) Ur Propoxyphene Screen Not Detected (NotDetected) Ur Barbiturates Screen Not Detected (NotDetected) U Tricyclic Antidepress Not Detected (NotDetected) Ur Phencyclidine Scrn Not Detected (NotDetected) Ur Amphetamines Screen Not Detected (NotDetected) U Methamphetamines Scrn Not Detected (NotDetected) U Benzodiazepines Scrn Not Detected (NotDetected) Urine Cocaine Screen Not Detected (NotDetected) U Marijuana (THC) Screen Not Detected (NotDetected) Serum Alcohol <10 mg/dL Blood Type Blood Type Confirm Blood Type Recheck Bld Type Recheck Status Antibody Screen Spec Expiration Date - EKG Data EKG Comments: 12-lead Electrocardiogram Interpretation Note EKG was reviewed and interpreted by myself. 12-lead ECG performed at 0655 is interpreted by me as revealing ventricular pacemaker at a rate of 66 beats per minute. [place] is normal. QRS duration is 86 ms, QTc is 403 ms.. There were no ST or T wave abnormalities to suggest myocardial ischemia or injury. R wave progression across the precordium was satisfactory. By my interpretation this EKG is non-diagnostic for acute ischemia. (Zeke Hanna) Disposition <Zeke Hanna - Last Filed: 06/27/23 06:58> Is patient prescribed a controlled substance at d/c from ED?: No Time of Disposition: 10:19 <Gilberto Cottrell - Last Filed: 06/27/23 10:19> Clinical Impression: Fall Disposition: HOME SELF-CARE Condition: Fair Instructions (If sedation given, give patient instructions): Fall Prevention for Older Adults (ED) Referrals: Shaggy Andrew DO [Doctor of Osteopathic Medicine] - 1-2 days
[2023-06-27 07:08] LABS: Basophils % (A) 1 %; Eosinophils # (A) 0.2 k/uL (0-0.7); Eosinophils % (A) 5 %; HGB 13.2 gm/dL (13.0-17.5); Lymphocytes # (A) 0.8 k/uL (1.0-4.8); Lymphocytes % (A) 21 %; MCH 33.9 pg (25.0-35.0); MCV 102.8 fL (80.0-100.0); Macrocytosis Slight; Mean Platelet Volume 7.6; Monocytes # (A) 0.3 k/uL (0-1.0); Monocytes % (A) 8 %; Neutrophils # (A) 2.2 k/uL (1.3-7.7); Neutrophils % (A) 63 %; Platelet Count 203 k/uL (150-450); RBC 3.89 m/uL (4.30-5.90); RDW 13.5 % (11.5-15.5); WBC 3.5 k/uL (3.8-10.6)
[2023-06-27 07:19] LABS: INR 2.5 (<1.2); Partial Thromboplastin Time 33.8 sec (22.0-30.0); Prothrombin Time 24.4 sec (9.0-12.0)
[2023-06-27 07:23] LABS: ALT 21 U/L (4-49); AST 24 U/L (17-59); African American GFR (CKD) 59 (>60 ml/min/1.73 sqM); Albumin 4.4 g/dL (3.5-5.0); Alcohol <10 mg/dL; Alkaline Phosphatase 90 U/L (38-126); Anion Gap 12 mmol/L; Blood Urea Nitrogen 22 mg/dL (9-20); Calcium 9.3 mg/dL (8.4-10.2); Carbon Dioxide 24 mmol/L (22-30); Chloride 104 mmol/L (98-107); Glucose 157 mg/dL (74-99); Non-African American GFR(CKD) 51 (>60 ml/min/1.73 sqM); Sodium 140 mmol/L (137-145); Total Bilirubin 0.5 mg/dL (0.2-1.3); Total Protein 7.1 g/dL (6.3-8.2)
--- NOTE | 2023-06-27 08:21 | CT ---
EXAMINATION TYPE: CT brain sapna wo con DATE OF EXAM: 06/27/2023 COMPARISON: None HISTORY: Trauma. Fell out of bed this am. Contusion and swelling to left eye CT DLP: 1356.4 mGycm, Automated exposure control for dose reduction was used. CONTRAST: Patient injected with 0 mL of Isovue 300. CT of the brain is performed utilizing 3 mm thick sections through the posterior fossa and 3 mm thick sections through the remaining calvarium. Study is performed within 24 hours of arrival to the hospital. No abnormal hyperdensity is present to suggest an acute intracranial hemorrhage. No mass lesion is evident. No acute infarcts are evident. Ventricles and sulci are appropriate for the patient age. There is a large hematoma over the left orbit and left frontal region. No acute fractures are evident . Paranasal sinuses and mastoid air cells within the [id number] are clear. IMPRESSIONS: 1. No acute intracranial process. Follow-up MRI can be performed as clinically indicated. 2. Superficial soft tissue swelling over the left orbit and supraorbital/frontal region. CT cervical spine. COMPARISON: None CT of the cervical spine is performed in the axial plane at 2 mm thick sections. Reconstructed image s in the coronal, and sagittal plane are reviewed on the computer. No acute fractures are evident. Vertebral body alignment is exaggerated cervical kyphosis from thoracic kyphosis. Disc space narrowing is present throughout the lower cervical upper thoracic spine. Anterior longitud inal ligament effusion is evident. Consider ankylosing spondylitis. Vertebral body heights are preserved. No spinal canal stenosis is evident. Uncovertebral joint hypertrophy has severe foraminal stenosis C4-5 right C3-4 IMPRESSIONS: 1. No acute osseous abnormality cervical spine. 2. Degenerative disc changes cervical spine. 3. Severe foraminal stenosis is noted at C3-4 on the right and C4-5 bilaterally. 4. Anterior cervical thoracic fusion. Correlate for ankylosing spondylitis.
--- NOTE | 2023-06-27 08:23 | CT ---
EXAMINATION TYPE: CT facial bones wo con DATE OF EXAM: 06/27/2023 COMPARISON: None HISTORY: Trauma. Fell from bed this am. Contusion and swelling to left eye. CT DLP: 1356.4 mGycm CONTRAST: 0 mL of Isovue 300 The paranasal sinuses are examined in the axial plane at 2 mm thick sections. Reconstructed images i n the coronal plane were obtained. The patient is edentulous. No acute fractures are evident. Superficial soft tissue swelling is over the left supraorbital fronta l region and over the left orbit. Nasal bones are intact. Greater wings of the sphenoid are normal. Z ygomatic arches are intact. Maxillary spine is intact. The maxillary sinuses are clear. The ethmoid air cells are clear. The sphenoid sinuses are clear. The frontal sinuses are clear. The septum is evaluated. There is septal deviation to the left. The ostiomeatal units are patent. IMPRESSIONS: 1. No acute fracture or facial bones. 2. Superficial soft tissue swelling left orbital and supraorbital/frontal region
[2023-06-27 08:27] VITALS: BP 138/69
[2023-06-27 08:48] LABS: Amphetamine Screen,Urine Not Detected (NotDetected); Barbiturate Screen,Urine Not Detected (NotDetected); Benzodiazepines Screen,Urine Not Detected (NotDetected); Cocaine Screen,Urine Not Detected (NotDetected); Methadone Screen, Urine Not Detected (NotDetected); Opiate Screen,Urine Not Detected (NotDetected); Oxycodone Screen, Urine Not Detected (NotDetected); Phencyclidine Screen,Urine Not Detected (NotDetected); Tricyclic Antidepressant,Urine Not Detected (NotDetected); Urn Cannabinoid Scrn Not Detected (NotDetected)
--- NOTE | 2023-06-27 09:14 | XR ---
EXAMINATION TYPE: XR pelvis AP view DATE OF EXAM: 06/27/2023 COMPARISON: None HISTORY: Trauma, pain TECHNIQUE: AP pelvis FINDINGS: Bilateral hip prostheses are present. Symphysis pubis and sacroiliac joints appear normal. Normal bowel gas is present. No acute fractures are identified. IMPRESSION: 1. No acute osseous abnormality AP pelvis
--- NOTE | 2023-06-27 09:16 | XR ---
EXAMINATION TYPE: XR chest 1V portable DATE OF EXAM: 06/27/2023 COMPARISON: 05/02/2019 INDICATION: Trauma from fall TECHNIQUE: Single frontal view of the chest is obtained. FINDINGS: The heart size is normal. The pulmonary vasculature is normal. The lungs are clear. No pneumothorax is evident. Left fifth rib fracture is not excluded. This could be artifact. No addit ional areas suspicious for rib fractures evident. IMPRESSION: 1. A left lateral fifth rib fractures not excluded. 2. No additional suspicious changes from acute trauma.
[2023-06-27] MEDS ORDERED: MORPHINE SULFATE 4 MG/ML SYRINGE IV STA (09:52)
[2023-06-27 10:40] VITALS: PULSE 66
== END 2023-06-27 10:39 | disposition home or self-care (01) ==
LOC: EC 06:36
DX: S09.93XA Unspecified injury of face, initial encounter (principal); M47.812 Spondylosis without myelopathy or radiculopathy, cervical region; M48.02 Spinal stenosis, cervical region; E11.9 Type 2 diabetes mellitus without complications; I10 Essential (primary) hypertension; E78.5 Hyperlipidemia, unspecified; I48.91 Unspecified atrial fibrillation; G47.30 Sleep apnea, unspecified; M19.90 Unspecified osteoarthritis, unspecified site; Z79.899 Other long term (current) drug therapy; Z79.82 Long term (current) use of aspirin; W06.XXXA Fall from bed, initial encounter; Y93.84 Activity, sleeping
CPT/HCPCS: 36415; 93005; 86900; 86901; 80053; 85025; 85610; 85730; 86850; 80306; 72170; 71045; 72125; 70486; 70450; 99284; 96374; G0480; J2270; 80320

== ENCOUNTER → 2024-03-20 | Outpatient (CLI) | payer MEDICARE ==
[2024-03-20 21:40] LABS: Blood Urea Nitrogen 21.4 mg/dL (9.0-27.0); Carbon Dioxide 21.6 mmol/L (21.6-31.8); Chloride 106 mmol/L (96-109); Potassium 4.3 mmol/L (3.5-5.5); Sodium 142 mmol/L (135-145)
[2024-03-20 21:51] LABS: HGB 12.3 g/dL (13.0-17.0); MCH 33.3 pg (27.0-32.0); MCHC 32.4 g/dL (32.0-37.0); NRBC Per 100 WBC 0 X 10*3/uL (0.00-0.01); Platelet Count 212 X 10*3/uL (140-440); RBC 3.69 X 10*6/uL (4.40-5.60); RDW 14.7 % (11.5-14.5); WBC 4.02 X 10*3/uL (4.50-10.00)
== END | disposition home or self-care (01) ==
LOC: LABPAT 14:48
PROVIDERS: ATTEND Internal Medicine Clinical Cardiac Electrophysiology
DX: Z01.812 Encounter for preprocedural laboratory examination (principal); I42.0 Dilated cardiomyopathy; I48.0 Paroxysmal atrial fibrillation; I35.1 Nonrheumatic aortic (valve) insufficiency
CPT/HCPCS: 36415; 80051; 82565; 84520; 85027

== ENCOUNTER 2024-03-29 15:38 | Day surgery (SDC) | payer MEDICARE ==
[2024-03-27 10:38] VITALS: BMI 30.4
[2024-03-29 16:19] LABS: Glucose,Whole Blood 97 mg/dL (70-110)
[2024-03-29] MEDS: SODIUM CHLORIDE 0.9% 1,000 ML IV ONE (16:21)
[2024-03-29 16:37] LABS: INR 2.1 (<1.2); Prothrombin Time 20.6 sec (10.0-12.5)
[2024-03-29 16:45] VITALS: RESP 16
[2024-03-29] MEDS: MIDAZOLAM 2 MG/2 ML VIAL IVP ONE (19:37)
[2024-03-29] MEDS: ceFAZolin 1 GM in SODIUM CHLORIDE 0.9% IRRIG BTL 250 ML IRRIGATION PRN (19:38)
[2024-03-29] MEDS ORDERED: LIDOCAINE 1% INJ 10MG/ML (20 ML MDV) ONE (19:39)
[2024-03-29] MEDS ORDERED: fentaNYL (PF) 50 MCG/ML 2 ML AMP ONE (19:41)
[2024-03-29] MEDS: LIDOCAINE 1% INJ 10MG/ML (20 ML MDV) SQ ONE ×2 (19:42→19:48)
[2024-03-29] MEDS: fentaNYL (PF) 50 MCG/1 ML VIAL IVP ONE (19:44)
[2024-03-29] MEDS ORDERED: ACETAMINOPHEN TAB 325 MG TAB PO PRN (20:25)
--- NOTE | 2024-03-29 20:39 | P.EPPROC ---
- EP Procedure Note Electrophysiology Procedure Note: Diagnosis Regarding secondary to complete heart block, biventricular pacemaker with conduction system pacing in the His bundle Pacemaker generator at [facility] Procedure Biventricular pacemaker generator change Details Patient was brought to the EP lab in a fasting state. Written informed consent was obtained prior to the procedure. Conscious sedation provided by anesthesia team IV antibiotics administered. Local anesthesia administered. A 4 cm incision made in the pectoral area. Subfascial pocket accessed and partial capsulectomy performed Chronic atrial lead position the right atrial appendage: P wave 0.8 mV, pacing impedance 380 ohms, pacing threshold 0.7 V at point 4 ms Chronic RV lead position in the RV apex. Pacing impedance 608 ohms and pacing threshold 1.75 V at 0.8 ms His bundle lead: Pacing threshold 1.5 V at 1 ms pace impedance of 418 ohms New biventricular pacemaker generator connected to the leads and placed in the subfascial pocket Antibiotic pouch placed device programmed to DDDR 60-130 ppm, paced AV delay 200 ms Patient tolerated the procedure well without acute complications
[2024-03-29 22:25] LABS: Glucose,Whole Blood 230 mg/dL (70-110)
[2024-03-29] MEDS: GABAPENTIN 300 MG CAP PO SCH (22:25)
[2024-03-29] MEDS: metFORMIN 500 MG TAB PO SCH (22:25)
[2024-03-29] MEDS: ATORVASTATIN 40 MG TAB PO SCH (22:25)
[2024-03-29] MEDS: SODIUM CHLORIDE 0.9% 1,000 ML IV SCH ×2 (22:42→22:43)
[2024-03-29] MEDS: ACETAMINOPHEN IV (For NPO) 1,000 MG in EMPTY BAG 1 BAG IVPB ONE (22:42)
[2024-03-30 08:22] VITALS: BP 117/67; PULSE 61; TEMP 97.4
[2024-03-30] MEDS: GABAPENTIN 300 MG CAP PO SCH (08:50)
[2024-03-30] MEDS: CITALOPRAM HYDROBROMIDE 20 MG TAB PO SCH (08:50)
[2024-03-30] MEDS: EZETIMIBE 10 MG TAB PO SCH (08:51)
[2024-03-30] MEDS: FUROSEMIDE 20 MG TAB PO SCH (08:51)
[2024-03-30] MEDS: VALSARTAN 80 MG TAB PO SCH (08:51)
[2024-03-30] MEDS: ASPIRIN 81 MG PO SCH (08:51)
[2024-03-30] MEDS: METOPROLOL SUCCINATE (ER) 25 MG TAB.ER.24H PO SCH (08:51)
== END 2024-03-30 14:09 | disposition home or self-care (01) ==
LOC: CATHEP 15:38 → 6NMEDSUR 20:18 → CATHEP 03-30 14:09
PROVIDERS: ATTEND Internal Medicine Clinical Cardiac Electrophysiology
DX: I44.2 Atrioventricular block, complete (principal); I10 Essential (primary) hypertension; E78.5 Hyperlipidemia, unspecified; E11.9 Type 2 diabetes mellitus without complications; F17.210 Nicotine dependence, cigarettes, uncomplicated; Z79.82 Long term (current) use of aspirin; Z79.84 Long term (current) use of oral hypoglycemic drugs; Z79.899 Other long term (current) drug therapy
CPT/HCPCS: 33229; 85610; C2621; J2250; J0690 ×2; J2001; J3010